=== PATIENT | female | born 1975 | race Asian ===

== ENCOUNTER 2016-11-10 12:00 | Inpatient (IN) | payer BC ==
[~2016-11-10] VITALS: Ht 158.8 cm; Wt 46.3 kg
[~2016-11-10 12:00] MED LIST: NO MEDICATIONS; PANT40TA5 PO; SUCR1TAB PO
[2016-11-10] MEDS ORDERED: ONDANSETRON 2MG/ML, 2ML ONE (12:25)
[2016-11-10] MEDS ORDERED: ACETAMINOPHEN 500 MG TABLET ONE (12:25)
[2016-11-10] MEDS ORDERED: ONDANSETRON 2MG/ML, 2ML IVPush ONE (12:30)
[2016-11-10] MEDS ORDERED: ACETAMINOPHEN 500 MG TABLET PO ONE (12:30)
[2016-11-10] MEDS ORDERED: SODIUM CHLORIDE FLUSH 10ML SYR IVF ONE (12:30)
[2016-11-10] MEDS ORDERED: SODIUM CHLORIDE 0.9% 1,000ML IVBOLUS ONE (12:30)
[2016-11-10 13:06] LABS: ASPARTATE AMINO TRANSFERASE 13 U/L (15-37); BLOOD UREA NITROGEN 11 mg/dL (7-18)
[2016-11-10 13:11] LABS: HEMOGLOBIN 12.7 g/dL (11.7-16.4)
[2016-11-10] MEDS ORDERED: SODIUM CHLORIDE 0.9% 1,000 ML IV ONE (13:11)
[2016-11-10] MEDS ORDERED: HYDROmorphone 1 MG/ML, 1ML ONE ×3 (13:14→18:40)
[2016-11-10 13:22] LABS: DIFF TOTAL CELLS COUNTED 50 CELL DIFFERENTIAL; VERIFY COUNTS? YES
[2016-11-10 13:23] LABS: ANISOCYTOSIS 1+
[2016-11-10] MEDS ORDERED: VANCOMYCIN PER PHARMACY MC ONE (13:30)
[2016-11-10] MEDS ORDERED: HYDROmorphone 2 MG/ML, 1ML IVPush ONE (13:30)
[2016-11-10] MEDS ORDERED: CEFEPIME 1 GM in DEXTROSE 5% 50 ML IV ONE (13:30)
[2016-11-10] MEDS ORDERED: VANCOMYCIN PMX 1GM/200ML 200 ML IV ONE (14:00)
[2016-11-10] MEDS ORDERED: DOCUSATE 100 MG CAPSULE PO PRN (14:30)
[2016-11-10] MEDS: NS + 40MEQ KCL 1,000 ML IV SCH (14:30)
[2016-11-10] MEDS ORDERED: POLYETHYLENE GLYCOL 17 GM PACKET PO PRN (14:30)
[2016-11-10] MEDS ORDERED: VANCOMYCIN PER PHARMACY MC PRN (14:30)
[2016-11-10] MEDS: HYDROmorphone 2 MG/ML, 1ML IV PRN ×2 (15:51→18:46)
[2016-11-10] MEDS ORDERED: NS + 40MEQ KCL 1,000 ML IV ONE (17:12)
[2016-11-10 17:50] LABS: BLOOD UREA NITROGEN 13 mg/dL (7-18)
[2016-11-10 20:18] VITALS: BP 101/57
[2016-11-10] MEDS ORDERED: PHARMACOKINETIC MONITORING MC PRN (20:30)
[2016-11-10] MEDS ORDERED: PHARMACOKINETIC CONSULTATION MC ONE (20:30)
[2016-11-10] MEDS: CEFEPIME 1 GM in DEXTROSE 5% 50 ML IV SCH (22:22)
[2016-11-10] MEDS: OXYcodone IR 5MG TABLET PO PRN (22:27)
[2016-11-10] MEDS: ONDANSETRON 2MG/ML, 2ML IVP PRN (22:37)
[2016-11-11] VITALS (8 sets, daily range): BP systolic 90–103; BP diastolic 50–65
[2016-11-11] MEDS: ACETAMINOPHEN 325 MG TABLET PO PRN ×3 (00:35→17:44)
[2016-11-11] MEDS: NS + 40MEQ KCL 1,000 ML IV SCH ×2 (02:04→11:58)
[2016-11-11] MEDS: VANCOMYCIN PMX 1GM/200ML 200 ML IV SCH ×2 (02:04→14:49)
[2016-11-11] MEDS: CEFEPIME 1 GM in DEXTROSE 5% 50 ML IV SCH ×3 (05:13→22:07)
[2016-11-11 05:28] LABS: HEMOGLOBIN 10.5 g/dL (11.7-16.4)
[2016-11-11 05:36] LABS: BLOOD UREA NITROGEN 8 mg/dL (7-18)
[2016-11-11 05:47] LABS: DIFF TOTAL CELLS COUNTED 100 CELL DIFF
[2016-11-11 05:55] LABS: VERIFY COUNTS? YES
[2016-11-11] MEDS: OXYcodone IR 5MG TABLET PO PRN ×3 (07:11→18:28)
[2016-11-11] MEDS: SENNA/DOCUSATE TABLET PO SCH (08:30)
[2016-11-11] MEDS ORDERED: LORA0.5T PO (11:50)
[2016-11-11] MEDS ORDERED: ONDA4TAB7 PO (11:50)
[2016-11-11] MEDS: TBO-FILGRASTIM 300 MCG/0.5 ML SQ SCH (11:58)
[2016-11-12 02:36] VITALS: BP 106/59
[2016-11-12] MEDS: ACETAMINOPHEN 325 MG TABLET PO PRN ×2 (02:52→12:38)
[2016-11-12 03:19] LABS: HEMOGLOBIN 11.1 g/dL (11.7-16.4)
[2016-11-12] MEDS: VANCOMYCIN PMX 1GM/200ML 200 ML IV SCH ×2 (03:36→17:20)
[2016-11-12 03:57] LABS: DIFF TOTAL CELLS COUNTED 100 CELL DIFF
[2016-11-12 03:59] LABS: VERIFY COUNTS? YES
[2016-11-12 04:00] LABS: ANISOCYTOSIS 1+
[2016-11-12] MEDS: CEFEPIME 1 GM in DEXTROSE 5% 50 ML IV SCH ×3 (06:07→23:47)
[2016-11-12 07:45] VITALS: BP 97/64
[2016-11-12] MEDS: SENNA/DOCUSATE TABLET PO SCH (10:16)
[2016-11-12] MEDS: TBO-FILGRASTIM 300 MCG/0.5 ML SQ SCH (10:16)
[2016-11-12] MEDS: OXYcodone IR 5MG TABLET PO PRN ×4 (10:16→23:57)
[2016-11-12 13:09] VITALS: BP 107/73
[2016-11-12 19:52] VITALS: BP 97/64
[2016-11-12] MEDS: ONDANSETRON 2MG/ML, 2ML IVP PRN (20:22)
[2016-11-13] MEDS: VANCOMYCIN PMX 1GM/200ML 200 ML IV SCH ×2 (01:02→09:57)
[2016-11-13 03:00] VITALS: BP 102/61
[2016-11-13 06:53] VITALS: BP 108/67
[2016-11-13] MEDS: OXYcodone IR 5MG TABLET PO PRN ×2 (06:55→17:06)
[2016-11-13] MEDS: TBO-FILGRASTIM 300 MCG/0.5 ML SQ SCH (09:00)
[2016-11-13] MEDS: ONDANSETRON 2MG/ML, 2ML IVP PRN (09:01)
[2016-11-13] MEDS: SENNA/DOCUSATE TABLET PO SCH (09:02)
[2016-11-13] MEDS: CEFEPIME 1 GM in DEXTROSE 5% 50 ML IV SCH (09:02)
[2016-11-13] MEDS: ACETAMINOPHEN 325 MG TABLET PO PRN (09:02)
[2016-11-13] MEDS: CEFTRIAXONE PMX 2GM/50ML 50 ML IV SCH (13:04)
[2016-11-13 13:25] VITALS: BP 101/64
[2016-11-13 19:33] VITALS: BP 105/60
[2016-11-14 03:16] VITALS: BP 98/63
[2016-11-14 05:09] LABS: HEMOGLOBIN 11.5 g/dL (11.7-16.4)
[2016-11-14 05:54] LABS: DIFF TOTAL CELLS COUNTED 100 CELL DIFF
[2016-11-14 05:56] LABS: VERIFY COUNTS? YES
[2016-11-14] MEDS: SENNA/DOCUSATE TABLET PO SCH (09:00)
[2016-11-14 09:43] VITALS: BP 110/65
[2016-11-14 12:44] VITALS: BP 110/70
[2016-11-14] MEDS: CEFTRIAXONE PMX 2GM/50ML 50 ML IV SCH (13:20)
[2016-11-14] MEDS: OXYcodone IR 5MG TABLET PO PRN ×2 (13:27→22:28)
[2016-11-14 20:50] VITALS: BP 107/69
[2016-11-15 02:53] VITALS: BP 99/62
[2016-11-15 07:22] VITALS: BP 98/65
[2016-11-15] MEDS: SENNA/DOCUSATE TABLET PO SCH (09:00)
[2016-11-15] MEDS ORDERED: OXYC5TAB3 PO (11:45)
[2016-11-15] MEDS: CEFTRIAXONE PMX 2GM/50ML 50 ML IV SCH (12:45)
[2016-11-15 13:13] VITALS: BP 112/77
== END 2016-11-15 14:27 | disposition home or self-care (01) | DRG 872 ==
LOC: ED 12:37 → EDIP 13:31 → 3NW 19:51
PROVIDERS: ADMIT Family Medicine
PROC: 0T9B70Z Drainage of Bladder with Drainage Device, Via Natural or Artificial Opening (ICD-10-PCS; principal; 2016-11-10)
DX: A41.51 Sepsis due to Escherichia coli [E. coli] (principal); C16.9 Malignant neoplasm of stomach, unspecified; D70.9 Neutropenia, unspecified; R50.81 Fever presenting with conditions classified elsewhere; K59.00 Constipation, unspecified; E87.6 Hypokalemia; Z16.29 Resistance to other single specified antibiotic; I95.9 Hypotension, unspecified; Z88.5 Allergy status to narcotic agent
CPT/HCPCS: 36415; 71010; 74020; 80048; 80053; 80202; 81003; 83605; 83735; 84145; 85025; 85651; 86140; 87040; 87077; 87186; 96361; 96365; 96366; 96367; 96368; 96375; 96376; J0692; J0696; J1170; J2405; J3370; J1447; J3480; J7030

== ENCOUNTER → 2017-01-18 | Outpatient (CLI) | payer BC ==
[~2017-01-18] MED LIST changes: +CAPE500T24 PO; +LORA0.5T PO; +ONDA4TAB7 PO; +OXYC5TAB3 PO
[2017-01-18 10:30] LABS: ASPARTATE AMINO TRANSFERASE 19 U/L (15-37); BLOOD UREA NITROGEN 11 mg/dL (7-18)
== END | disposition home or self-care (01) ==
LOC: STAR 09:34
PROVIDERS: ATTEND Thoracic Surgery (Cardiothoracic Vascular Surgery)
DX: Z01.818 Encounter for other preprocedural examination (principal)
CPT/HCPCS: 36415; 80053; 85025

== ENCOUNTER 2017-01-22 07:51 | Inpatient (IN) | payer BC ==
[~2017-01-22] VITALS: Ht 160 cm; Wt 58.3 kg
[2017-01-22 08:30] VITALS: BP 111/64
[2017-01-22] MEDS ORDERED: MIDAZOLAM 1 MG/ML, 2ML ONE (09:10)
[2017-01-22] MEDS ORDERED: FENTANYL PF 250 MCG/5ML ONE (09:10)
[2017-01-22] MEDS ORDERED: BUPIVACAINE/PF-EPI 0.25% 1:200K ONE ×2 (09:44→10:24)
[2017-01-22] MEDS ORDERED: NEOSTIGMINE 1 MG/ML, 10ML ONE (10:07)
[2017-01-22] MEDS ORDERED: CEFAZOLIN 1,000 MG ONE (10:07)
[2017-01-22] MEDS ORDERED: GLYCOPYRROLATE 0.2MG/1ML ONE (10:07)
[2017-01-22] MEDS ORDERED: PROPOFOL 10 MG/ML, 20ML ONE (10:07)
[2017-01-22] MEDS ORDERED: ONDANSETRON 2MG/ML, 2ML ONE (10:07)
[2017-01-22] MEDS ORDERED: ROCURONIUM 10 MG/ML ONE (10:07)
[2017-01-22] MEDS ORDERED: HYDROmorphone 1 MG/ML, 1ML IV PRN (10:30)
[2017-01-22] MEDS ORDERED: MEPERIDINE/PF 25MG/0.5ML IVPush PRN (10:30)
[2017-01-22] MEDS ORDERED: ONDANSETRON 2MG/ML, 2ML IVPush PRN ×2 (10:30→12:30)
[2017-01-22] MEDS ORDERED: PROMETHAZINE 25 MG/ML, 1ML IV PRN (10:30)
[2017-01-22] MEDS ORDERED: OXYcodone 5 MG/5 ML ORAL.SOL UDC PO PRN (10:30)
[2017-01-22] MEDS ORDERED: FENTANYL PF 100 MCG/2ML IV PRN (10:30)
[2017-01-22] MEDS: LACTATED RINGERS 1,000 ML IV SCH ×2 (12:14→22:30)
[2017-01-22] MEDS ORDERED: PROMETHAZINE 25 MG/ML, 1ML IM PRN (12:30)
[2017-01-22] MEDS ORDERED: hydrALAzine 20 MG/ML, 1ML IV PRN (12:30)
[2017-01-22] MEDS ORDERED: DIPHENHYDRAMINE 50 MG/ML, 1ML IV PRN (12:30)
[2017-01-22] MEDS ORDERED: PROMETHAZINE 12.5 MG SUPP PR PRN (12:30)
[2017-01-22] MEDS ORDERED: LORazepam 2 MG/ML, 1ML IV PRN (12:30)
[2017-01-22] MEDS ORDERED: ENALAPRILAT 1.25 MG/ML, 2ML IV PRN (12:30)
[2017-01-22] MEDS ORDERED: MEPERIDINE/PF 25MG/0.5ML ONE (12:40)
[2017-01-22] MEDS ORDERED: KETOROLAC 30 MG/1 ML ONE (12:50)
[2017-01-22] MEDS: KETOROLAC 30 MG/1 ML IV PRN ×2 (12:54→20:43)
[2017-01-22] MEDS ORDERED: HYDROmorphone 1 MG/ML, 1ML ONE (12:58)
[2017-01-22 13:30] VITALS: BP 122/73
[2017-01-22] MEDS: PANTOPRAZOLE 40 MG IV IVPush SCH (14:44)
[2017-01-22] MEDS: SCOPOLAMINE PATCH, 1.5MG PATCH.TD72 TD SCH (14:45)
[2017-01-22] MEDS: morphine SULFATE 10 MG/ML, 1ML IV PRN ×5 (15:05→20:43)
[2017-01-22] MEDS: CEFOTETAN PMX 1GM/50ML 50 ML IVPB SCH (15:44)
[2017-01-22 18:29] VITALS: BP 114/65
[2017-01-23] VITALS (7 sets, daily range): BP systolic 93–123; BP diastolic 51–69
[2017-01-23] MEDS: CEFOTETAN PMX 1GM/50ML 50 ML IVPB SCH (00:47)
[2017-01-23] MEDS: KETOROLAC 30 MG/1 ML IV PRN (04:43)
[2017-01-23] MEDS: PANTOPRAZOLE 40 MG IV IVPush SCH (09:25)
[2017-01-23] MEDS: ENOXAPARIN 40 MG/0.4 ML SQ SCH (09:25)
[2017-01-23] MEDS: LACTATED RINGERS 1,000 ML IV SCH ×2 (09:29→19:33)
[2017-01-23] MEDS: morphine SULFATE 10 MG/ML, 1ML IV PRN ×4 (10:04→23:29)
[2017-01-24 00:09] VITALS: BP 106/65
[2017-01-24] MEDS: morphine SULFATE 10 MG/ML, 1ML IV PRN ×5 (02:33→21:46)
[2017-01-24] MEDS: LACTATED RINGERS 1,000 ML IV SCH ×2 (05:43→16:29)
[2017-01-24 06:06] LABS: BLOOD UREA NITROGEN 12 mg/dL (7-18)
[2017-01-24 07:27] VITALS: BP 102/61
[2017-01-24] MEDS ORDERED: OMNIPAQUE 350 MG/ML, 150 ML BOTTLE ONE (08:46)
[2017-01-24] MEDS: PANTOPRAZOLE 40 MG IV IVPush SCH (09:34)
[2017-01-24] MEDS: ENOXAPARIN 40 MG/0.4 ML SQ SCH (09:34)
[2017-01-24 12:45] VITALS: BP 114/68
[2017-01-24 19:53] VITALS: BP 118/75
[2017-01-25] MEDS: LACTATED RINGERS 1,000 ML IV SCH ×3 (02:00→21:53)
[2017-01-25] MEDS: morphine SULFATE 10 MG/ML, 1ML IV PRN (03:05)
[2017-01-25 03:15] VITALS: BP 112/75
[2017-01-25 07:24] VITALS: BP 108/69
[2017-01-25] MEDS: ENOXAPARIN 40 MG/0.4 ML SQ SCH (08:57)
[2017-01-25] MEDS: PANTOPRAZOLE 40 MG IV IVPush SCH (08:57)
[2017-01-25] MEDS: SCOPOLAMINE PATCH, 1.5MG PATCH.TD72 TD SCH (12:30)
[2017-01-25 13:15] VITALS: BP 104/54
[2017-01-25 20:30] VITALS: BP 126/79
[2017-01-25] MEDS: HYDROcodone/APAP 7.5-325MG/15ML UDC PO PRN (21:53)
[2017-01-26] MEDS: LACTATED RINGERS 1,000 ML IV SCH (02:57)
[2017-01-26 03:49] VITALS: BP 124/75
[2017-01-26] MEDS: HYDROcodone/APAP 7.5-325MG/15ML UDC PO PRN ×3 (06:35→22:14)
[2017-01-26 08:09] VITALS: BP 110/73
[2017-01-26] MEDS: PANTOPRAZOLE 40 MG IV IVPush SCH (09:00)
[2017-01-26] MEDS: ENOXAPARIN 40 MG/0.4 ML SQ SCH (10:11)
[2017-01-26] MEDS ORDERED: ONDANSETRON 4 MG TABLET PO PRN (13:00)
[2017-01-26 13:59] VITALS: BP 123/85
[2017-01-26 20:24] VITALS: BP 123/82
[2017-01-27 03:31] VITALS: BP 108/65
[2017-01-27] MEDS ORDERED: PANTOPROZOLE 40MG TABLET PO SCH (07:30)
[2017-01-27 08:00] VITALS: BP 114/71
[2017-01-27] MEDS: ENOXAPARIN 40 MG/0.4 ML SQ SCH (09:00)
[2017-01-27 10:19] VITALS: BP_SYST 117
[2017-01-27] MEDS: HYDROcodone/APAP 7.5-325MG/15ML UDC PO PRN (10:43)
[2017-01-27] MEDS ORDERED: OMEP-110 PO (11:21)
[2017-01-27] MEDS ORDERED: HYDR473S51 PO (11:23)
== END 2017-01-27 11:31 | disposition home or self-care (01) | DRG 328 ==
LOC: 4NOR 07:51 → EDSTATUS 10:00 → DCLOUNGE 01-27 11:13
PROVIDERS: ADMIT Thoracic Surgery (Cardiothoracic Vascular Surgery); ATTEND Thoracic Surgery (Cardiothoracic Vascular Surgery)
PROC: 0D1 Gastrointestinal System, Bypass (ICD-10-PCS; 2017-01-22)
PROC: 07BB4ZZ Excision of Mesenteric Lymphatic, Percutaneous Endoscopic Approach (ICD-10-PCS; 2017-01-22)
PROC: 0DB64ZZ Excision of Stomach, Percutaneous Endoscopic Approach (ICD-10-PCS; principal; 2017-01-22 10:00)
DX: C16.9 Malignant neoplasm of stomach, unspecified (principal); K25.9 Gastric ulcer, unspecified as acute or chronic, without hemorrhage or perforation
CPT/HCPCS: 36415; 74241; 80048; 82962; 85025; 88304; 88305; 88307; J0690; J1170; J1650; J1885; J2175; J2250; J2405; J2704; J2710; J3010; J3490; Q9967; C9113; J2270; J7120; S0074

== ENCOUNTER 2017-07-13 07:02 | Day surgery (SDC) | payer BC ==
[~2017-07-13] VITALS: Ht 157.5 cm; Wt 47.8 kg
[~2017-07-13 07:02] MED LIST changes: +HYDR473S51 PO; +OMEP-110 PO
[2017-07-13 07:28] VITALS: BP 112/75
[2017-07-13] MEDS ORDERED: SODIUM CHLORIDE 0.9% 1,000 ML IV SCH (07:30)
[2017-07-13] MEDS ORDERED: LIDOCAINE 2%, 20ML ONE (08:57)
[2017-07-13] MEDS ORDERED: MIDAZOLAM 1 MG/ML, 5ML ONE (09:11)
[2017-07-13] MEDS ORDERED: FENTANYL PF 100 MCG/2ML ONE (09:11)
== END 2017-07-13 12:45 ==
LOC: OUT 07:02
PROVIDERS: ATTEND Internal Medicine Hematology & Oncology
DX: Z45.2 Encounter for adjustment and management of vascular access device (principal); C16.5 Malignant neoplasm of lesser curvature of stomach, unspecified
CPT/HCPCS: 36590; 77001; 99156; 99157; J2250; J3010; J3490; J7030